=== PATIENT | male | born 1955 | race Caucasian/White ===

== ENCOUNTER 2018-01-18 09:40 | Emergency (ER) | payer OTHER, MEDICAID ==
[~2018-01-18] VITALS: Ht 198.1 cm; Wt 132.0 kg
[~2018-01-18 09:40] MED LIST: ACET-2619 PO; ACET-4192 PO; ASPI81CT95 PO; DOCU-299 PO; DULO60EC PO; ELA25 PO; FURO-572 PO; GABA300C1 PO; GEMF600T6 PO; ISOS10TA9 PO; METF1000 PO; METO25TA PO; POTA10TE31 PO; SIMV40TA1 PO; SPIR25TA PO; VAS10 PO; ZINC220C12 PO; [UNRECOGNIZED DRUG - CODE] SUBQ
[2018-01-18 10:13] VITALS: BP 119/83
--- NOTE | 2018-01-18 11:10 | NUR ---
C/O HYPERGLYCEMIA FASTING TODAY 510 BLOOD SUGAR--TOOK INSULIN 10UNITS AFTER DENIES SYMPTOMATIC. DENIES N/V/D; SKIN IS PINK/WARM/DRY; AAOX4, SITTING IN WHEELCHAIR LUNGS CLEAR BL; HR EVEN AND REGULAR; PT DENIES ANY FEVER, CP, SOB, OR COUGH AT THIS TIME; PATIENT STATES PAIN OF 0/10 AT THIS TIME; VSS; ER MD MADE AWARE OF PT STATUS.
[2018-01-18] MEDS ORDERED: NACL 0.9% 2,000 ML IV SCH (12:34)
[2018-01-18] MEDS ORDERED: INSULIN REGULAR, HUMAN 100 UNIT/ML VIAL SUBQ ONE (12:35)
[2018-01-18 13:27] LABS: BASOPHILS # (AUTO) 0.3 K/uL (0.00-0.22); BASOPHILS % (AUTO) 3.5 % (0.0-2.0); EOSINOPHILS # (AUTO) 0.5 K/uL (0-0.4); EOSINOPHILS % (AUTO) 5.3 % (0.0-4.0); HEMOGLOBIN 14.8 g/dL (12.0-18.0); LYMPHOCYTES # (AUTO) 3.3 K/uL (2.0-11.5); LYMPHOCYTES % (AUTO) 34.1 % (20.5-51.1); MEAN CORPUSCULAR HEMOGLOBIN 29 pg (27-31); MEAN CORPUSCULAR HGB CONC 33 g/dL (33-37); MEAN CORPUSCULAR VOLUME 88 fL (80-94); MONOCYTES # (AUTO) 0.6 K/uL (0.8-1.0); MONOCYTES % (AUTO) 5.9 % (1.7-9.3); NEUTROPHILS # (AUTO) 4.9 K/uL (1.8-7.7); NEUTROPHILS % (AUTO) 51.2 % (42.2-75.2); PLATELET COUNT (AUTO) 365 K/uL (140-450); RED BLOOD CELL COUNT(AUTO) 5.11 MIL/uL (4.20-6.10); RED CELL DISTRIBUTION WIDTH 13.2 % (11.6-13.7); WHITE BLOOD COUNT (AUTO) 9.6 K/uL (4.8-10.8)
[2018-01-18 13:48] LABS: APPEARANCE,URINE CLEAR (CLEAR); BILIRUBIN,URINE NEGATIVE (NEGATIVE); BLOOD, URINE NEGATIVE (NEGATIVE); COLOR,URINE YELLOW (YELLOW); LEUKOCYTE ESTERASE ,URINE NEGATIVE (NEGATIVE); NITRITE, URINE NEGATIVE (NEGATIVE); PH,URINE 5.5 (5.0-9.0); UGLUCOSE 3+ (NEGATIVE)
[2018-01-18 13:50] LABS: ALBUMIN 3.7 g/dL (3.4-5.0); ANION GAP 15.8 (8-16); CARBON DIOXIDE 25.7 mmol/L (21-32); CREATININE 1.5 mg/dL (0.7-1.3); POTASSIUM 4.5 mmol/L (3.5-5.1); TOTAL BILIRUBIN 0.4 mg/dL (0.0-1.0)
--- NOTE | 2018-01-18 14:00 | NUR ---
PT SITTING IN WHEELCHAIR, NO C/O PAIN OR DISCOMFORT AT THIS TIME.
--- NOTE | 2018-01-18 15:06 | NUR ---
RECHECKED FINGER BS 307, MD AWARE.
--- NOTE | 2018-01-18 15:30 | NUR ---
Patient discharged with v/s stable. Written and verbal after care instructions given and explained. Patient verbalized understanding. Wheel Chair Assisted with to home. All questions addressed prior to discharge. Advised to follow up with PMD.
[2018-01-18 15:32] VITALS: BP 120/80
== END 2018-01-18 15:30 | disposition home or self-care (01) ==
LOC: MED 09:40
DX: E11.65 Type 2 diabetes mellitus with hyperglycemia (principal); J44.9 Chronic obstructive pulmonary disease, unspecified; I10 Essential (primary) hypertension; Z79.84 Long term (current) use of oral hypoglycemic drugs; Z79.899 Other long term (current) drug therapy; Z79.82 Long term (current) use of aspirin
CPT/HCPCS: 36415; 80053; 81003; 82948; 83690; 85025; 96360; 96361; 99285; J1815

== ENCOUNTER 2018-03-30 11:33 | Emergency (ER) | payer OTHER, MEDICAID ==
[~2018-03-30] VITALS: Ht 198.1 cm; Wt 132.9 kg
[2018-03-30 11:37] VITALS: BP 150/66
[2018-03-30 12:56] VITALS: BP 150/66
== END 2018-03-30 12:02 | disposition home or self-care (01) ==
LOC: MED 11:33
DX: S13.4XXA Sprain of ligaments of cervical spine, initial encounter (principal); S50.312A Abrasion of left elbow, initial encounter; S50.311A Abrasion of right elbow, initial encounter; M25.551 Pain in right hip; R51 Headache; J44.9 Chronic obstructive pulmonary disease, unspecified; E11.9 Type 2 diabetes mellitus without complications; I10 Essential (primary) hypertension; V23.4XXA Motorcycle driver injured in collision with car, pick-up truck or van in traffic accident, initial encounter; Y93.89 Activity, other specified; Y99.8 Other external cause status; Y92.488 Other paved roadways as the place of occurrence of the external cause
CPT/HCPCS: 70450; 72125; 73502; 99284

== ENCOUNTER 2018-04-13 09:01 | Inpatient (IN) | payer OTHER, MEDICAID ==
[~2018-04-13] VITALS: Ht 198.1 cm; Wt 137.9 kg
[2018-04-13 09:06] VITALS: BP 139/76
[2018-04-13] MEDS ORDERED: ASPIRIN 81 MG TAB.CHEW PO ONE (09:35)
[2018-04-13 09:56] LABS: BASOPHILS # (AUTO) 0.1 K/uL (0.00-0.22); BASOPHILS % (AUTO) 0.6 % (0.0-2.0); EOSINOPHILS # (AUTO) 0.1 K/uL (0-0.4); HEMATOCRIT 37.7 % (36-52); HEMOGLOBIN 12.3 g/dL (12.0-18.0); LYMPHOCYTES # (AUTO) 1.8 K/uL (2.0-11.5); LYMPHOCYTES % (AUTO) 12.6 % (20.5-51.1); MEAN CORPUSCULAR HEMOGLOBIN 29 pg (27-31); MEAN CORPUSCULAR HGB CONC 33 g/dL (33-37); MEAN CORPUSCULAR VOLUME 89.3 fL (80-94); NEUTROPHILS # (AUTO) 10.9 K/uL (1.8-7.7); NEUTROPHILS % (AUTO) 78.8 % (42.2-75.2); PLATELET COUNT (AUTO) 397 K/uL (140-450); RED BLOOD CELL COUNT(AUTO) 4.23 MIL/uL (4.20-6.10); RED CELL DISTRIBUTION WIDTH 14.2 % (11.6-13.7); WHITE BLOOD COUNT (AUTO) 13.9 K/uL (4.8-10.8)
[2018-04-13] MEDS ORDERED: NITROGLYCERIN 2% 1 GM PKT TP ONE (10:05)
[2018-04-13 10:07] LABS: ANION GAP 15.6 (8-16); CARBON DIOXIDE 22.8 mmol/L (21-32); CREATININE 1.6 mg/dL (0.7-1.3); POTASSIUM 5.4 mmol/L (3.5-5.1)
[2018-04-13 10:14] LABS: ALBUMIN 3.3 g/dL (3.4-5.0); TOTAL BILIRUBIN 0.5 mg/dL (0.0-1.0)
[2018-04-13] MEDS ORDERED: SODIUM POLYSTYRENE 15 GM/60 ML UDBTL PO ONE ×2 (10:40→14:20)
[2018-04-13] MEDS ORDERED: SODIUM BICARBONATE 8.4% PFS 50 MEQ/50 ML SYR IVP ONE (10:40)
[2018-04-13] MEDS ORDERED: INSULIN REGULAR, HUMAN 100 UNIT/ML VIAL SUBQ ONE (10:40)
[2018-04-13] MEDS ORDERED: NACL 0.9% 1,000 ML IV ONE (10:40)
[2018-04-13] MEDS ORDERED: DOCUSATE SODIUM 100 MG GELCAP PO PRN (11:45)
[2018-04-13] MEDS ORDERED: HYDROcodone/APAP 7.5/325 MG 1 TAB PO PRN (11:45)
[2018-04-13] MEDS ORDERED: MORPHINE SULFATE 2 MG/ML SYR IVP PRN ×2 (11:45→13:30)
[2018-04-13 12:30] VITALS: BP 135/75
[2018-04-13 12:51] LABS: CHOL/HDL RATIO 3.5 (1-4.5); FREE T4 (FREE THYROXINE) 1.06 ng/dL (0.76-1.46); MAGNESIUM 1.7 mg/dL (1.8-2.4); PHOSPHORUS 3.8 mg/dL (2.5-4.9); THYROID STIMULATING HORMONE 1.24 uIU/mL (0.34-3.74)
[2018-04-13] MEDS: NACL 0.9% 1,000 ML IV SCH ×2 (13:15→19:41)
[2018-04-13] MEDS ORDERED: NITROGLYCERIN 0.4 MG TAB SL PRN (13:30)
[2018-04-13] MEDS ORDERED: DEXTROSE 50% 50 ML SYR IVP PRN (14:20)
[2018-04-13 15:16] LABS: ANION GAP 11.8 (8-16); CARBON DIOXIDE 26.1 mmol/L (21-32); CREATININE 1.5 mg/dL (0.7-1.3); POTASSIUM 4.9 mmol/L (3.5-5.1)
[2018-04-13 16:00] VITALS: BP 105/69
[2018-04-13] MEDS ORDERED: MAG SULF 2000 MG/WATER PREMIX 50 ML IV SCH (16:00)
[2018-04-13] MEDS: BLOOD GLUCOSE MONITORING 1 DEV DEV FS SCH ×2 (16:45→20:52)
[2018-04-13] MEDS: INSULIN LISPRO SLIDING SCALE 100 UNITS/ML VIAL SUBQ PRN ×2 (17:10→20:55)
[2018-04-13] MEDS ORDERED: LISI10TA11 PO (17:27)
[2018-04-13] MEDS ORDERED: GABA300C1 PO (17:27)
[2018-04-13] MEDS ORDERED: [UNRECOGNIZED DRUG - CODE] SUBQ (17:27)
[2018-04-13] MEDS ORDERED: INSU100S22 SUBQ (17:27)
[2018-04-13] MEDS ORDERED: FURO-570 PO (17:27)
[2018-04-13] MEDS ORDERED: METO100T14 PO (17:27)
[2018-04-13] MEDS ORDERED: ATOR20TA PO (17:27)
[2018-04-13] MEDS ORDERED: HUM SUBQ (17:27)
[2018-04-13] MEDS ORDERED: GEMF600T6 PO (17:27)
[2018-04-13 18:33] LABS: APPEARANCE,URINE CLEAR (CLEAR); BILIRUBIN,URINE NEGATIVE (NEGATIVE); BLOOD, URINE NEGATIVE (NEGATIVE); COLOR,URINE YELLOW (YELLOW); LEUKOCYTE ESTERASE ,URINE NEGATIVE (NEGATIVE); NITRITE, URINE NEGATIVE (NEGATIVE); PH,URINE 5.5 (5.0-9.0); UGLUCOSE 3+ (NEGATIVE)
[2018-04-13 18:41] LABS: BARBITURATE, URINE NEG. ng/ml (NEG <=200); BENZODIAZEPINE, URINE NEG. ng/mL (NEG <=200); CANNABINOID, URINE NEG. ng/mL (NEG <=50); COCAINE, URINE NEG. ng/mL (NEG <=300); OPIATE, URINE NEG. ng/mL (NEG <=2000); PHENCYCLIDINE SCREEN,URINE NEG. ng/mL (NEG <=25)
[2018-04-13 20:00] VITALS: BP 110/68
[2018-04-13] MEDS ORDERED: ATORVASTATIN 20 MG TAB PO SCH ×2 (21:00)
[2018-04-14] MEDS: ACETAMINOPHEN 325 MG TAB PO PRN ×2 (00:33→16:07)
[2018-04-14 00:36] VITALS: BP 119/62
[2018-04-14] MEDS: NACL 0.9% 1,000 ML IV SCH ×3 (02:10→19:41)
[2018-04-14 04:00] VITALS: BP 132/70
[2018-04-14] MEDS: INSULIN LISPRO SLIDING SCALE 100 UNITS/ML VIAL SUBQ PRN ×4 (05:27→20:41)
[2018-04-14] MEDS: BLOOD GLUCOSE MONITORING 1 DEV DEV FS SCH ×4 (05:27→20:36)
[2018-04-14 06:16] LABS: T4 (THYROXINE) 7.7 ug/dL (4.5-12.0)
[2018-04-14 06:30] LABS: BASOPHILS # (AUTO) 0.1 K/uL (0.00-0.22); BASOPHILS % (AUTO) 0.5 % (0.0-2.0); EOSINOPHILS # (AUTO) 0.2 K/uL (0-0.4); EOSINOPHILS % (AUTO) 1.4 % (0.0-4.0); HEMATOCRIT 34.8 % (36-52); HEMOGLOBIN 11.2 g/dL (12.0-18.0); LYMPHOCYTES # (AUTO) 3.8 K/uL (2.0-11.5); LYMPHOCYTES % (AUTO) 30.2 % (20.5-51.1); MEAN CORPUSCULAR HEMOGLOBIN 29 pg (27-31); MEAN CORPUSCULAR HGB CONC 32 g/dL (33-37); MEAN CORPUSCULAR VOLUME 89.8 fL (80-94); MONOCYTES # (AUTO) 1.1 K/uL (0.8-1.0); MONOCYTES % (AUTO) 8.7 % (1.7-9.3); NEUTROPHILS # (AUTO) 7.5 K/uL (1.8-7.7); NEUTROPHILS % (AUTO) 59.2 % (42.2-75.2); PLATELET COUNT (AUTO) 350 K/uL (140-450); RED BLOOD CELL COUNT(AUTO) 3.88 MIL/uL (4.20-6.10); RED CELL DISTRIBUTION WIDTH 14.3 % (11.6-13.7); WHITE BLOOD COUNT (AUTO) 12.6 K/uL (4.8-10.8)
[2018-04-14 06:39] LABS: ANION GAP 12.1 (8-16); CREATININE 1.5 mg/dL (0.7-1.3); POTASSIUM 4.1 mmol/L (3.5-5.1)
[2018-04-14 06:51] LABS: MAGNESIUM 2.3 mg/dL (1.8-2.4); PHOSPHORUS 3.4 mg/dL (2.5-4.9)
[2018-04-14 08:00] VITALS: BP 149/96
[2018-04-14] MEDS: AMITRIPTYLINE 25 MG TAB PO SCH (08:13)
[2018-04-14] MEDS: METOPROLOL SUCCINATE 50 MG TABER PO SCH (08:13)
[2018-04-14] MEDS: GABAPENTIN 300 MG CAP PO SCH ×3 (08:13→16:06)
[2018-04-14] MEDS: SPIRONOLACTONE 25 MG TAB PO SCH (08:14)
[2018-04-14] MEDS: FUROSEMIDE 40 MG TAB PO SCH (08:15)
[2018-04-14] MEDS: DULoxetine 30 MG CAPDR PO SCH (08:15)
[2018-04-14] MEDS: ATORVASTATIN 20 MG TAB PO SCH (08:15)
[2018-04-14] MEDS: GEMFIBROZIL 600 MG TAB PO SCH (08:15)
[2018-04-14] MEDS: ISOSORBIDE DINITRATE 10 MG TAB PO SCH (08:15)
[2018-04-14] MEDS: ASPIRIN 81 MG TAB.CHEW PO SCH (08:15)
[2018-04-14] MEDS: LISINOPRIL 10 MG TAB PO SCH (08:16)
[2018-04-14] MEDS: INSULIN LANTUS 100 UNITS/ML 10 ML VIAL SUBQ SCH (08:24)
[2018-04-14] MEDS ORDERED: ASPIRIN 81 MG TAB.CHEW PO SCH (09:00)
[2018-04-14] MEDS ORDERED: LISINOPRIL 20 MG TAB PO SCH (09:00)
[2018-04-14] MEDS ORDERED: METOPROLOL SUCCINATE 50 MG TABER PO SCH (09:00)
[2018-04-14 12:00] VITALS: BP 133/71
[2018-04-14] MEDS ORDERED: guaiFENesin 20 MG/ML UDC PO PRN (14:35)
[2018-04-14 16:00] VITALS: BP 124/84
[2018-04-14 20:00] VITALS: BP 112/68
[2018-04-15] VITALS: BP 118/64
[2018-04-15] MEDS: NACL 0.9% 1,000 ML IV SCH ×2 (03:41→13:13)
[2018-04-15 04:00] VITALS: BP 137/78
[2018-04-15] MEDS: BLOOD GLUCOSE MONITORING 1 DEV DEV FS SCH ×4 (05:56→20:31)
[2018-04-15 06:30] LABS: BASOPHILS # (AUTO) 0.1 K/uL (0.00-0.22); BASOPHILS % (AUTO) 0.4 % (0.0-2.0); EOSINOPHILS # (AUTO) 0.2 K/uL (0-0.4); EOSINOPHILS % (AUTO) 1.2 % (0.0-4.0); HEMOGLOBIN 10.9 g/dL (12.0-18.0); LYMPHOCYTES % (AUTO) 29.8 % (20.5-51.1); MEAN CORPUSCULAR HEMOGLOBIN 29 pg (27-31); MEAN CORPUSCULAR HGB CONC 32 g/dL (33-37); MEAN CORPUSCULAR VOLUME 89.7 fL (80-94); MONOCYTES # (AUTO) 1.3 K/uL (0.8-1.0); MONOCYTES % (AUTO) 9.7 % (1.7-9.3); NEUTROPHILS # (AUTO) 7.9 K/uL (1.8-7.7); NEUTROPHILS % (AUTO) 58.9 % (42.2-75.2); PLATELET COUNT (AUTO) 326 K/uL (140-450); RED BLOOD CELL COUNT(AUTO) 3.79 MIL/uL (4.20-6.10); RED CELL DISTRIBUTION WIDTH 14.2 % (11.6-13.7); WHITE BLOOD COUNT (AUTO) 13.4 K/uL (4.8-10.8)
[2018-04-15 08:00] VITALS: BP 141/87
[2018-04-15 08:09] LABS: POTASSIUM 4.4 mmol/L (3.5-5.1)
[2018-04-15 08:10] LABS: ANION GAP 11.6 (8-16); CARBON DIOXIDE 24.8 mmol/L (21-32); CREATININE 1.6 mg/dL (0.7-1.3)
[2018-04-15] MEDS: GEMFIBROZIL 600 MG TAB PO SCH (08:42)
[2018-04-15] MEDS: GABAPENTIN 300 MG CAP PO SCH ×3 (08:42→16:27)
[2018-04-15] MEDS: DULoxetine 30 MG CAPDR PO SCH (08:42)
[2018-04-15] MEDS: AMITRIPTYLINE 25 MG TAB PO SCH (08:43)
[2018-04-15] MEDS: LISINOPRIL 10 MG TAB PO SCH (08:43)
[2018-04-15] MEDS: ATORVASTATIN 20 MG TAB PO SCH (08:43)
[2018-04-15] MEDS: SPIRONOLACTONE 25 MG TAB PO SCH (08:44)
[2018-04-15] MEDS: FUROSEMIDE 40 MG TAB PO SCH (08:44)
[2018-04-15] MEDS: METOPROLOL SUCCINATE 50 MG TABER PO SCH (08:44)
[2018-04-15] MEDS: ISOSORBIDE DINITRATE 10 MG TAB PO SCH (08:45)
[2018-04-15] MEDS: ASPIRIN 81 MG TAB.CHEW PO SCH (08:45)
[2018-04-15] MEDS: INSULIN LANTUS 100 UNITS/ML 10 ML VIAL SUBQ SCH (08:52)
[2018-04-15 12:00] VITALS: BP 121/83
[2018-04-15] MEDS: INSULIN LISPRO SLIDING SCALE 100 UNITS/ML VIAL SUBQ PRN ×2 (12:41→17:13)
[2018-04-15 16:00] VITALS: BP 122/74
[2018-04-15] MEDS: INSULIN NPH HUMAN ISOPHANE 100 UNIT/ML VIAL SUBQ SCH (17:14)
[2018-04-15 20:00] VITALS: BP 134/73
[2018-04-15 22:20] LABS: APPEARANCE,URINE CLEAR (CLEAR); BILIRUBIN,URINE NEGATIVE (NEGATIVE); BLOOD, URINE NEGATIVE (NEGATIVE); COLOR,URINE YELLOW (YELLOW); LEUKOCYTE ESTERASE ,URINE NEGATIVE (NEGATIVE); NITRITE, URINE NEGATIVE (NEGATIVE); PH,URINE 5.5 (5.0-9.0); UGLUCOSE TRACE (NEGATIVE)
[2018-04-15 22:37] LABS: RBC,URINE 0-5 (RARE) /HPF (0-5); WBC,URINE 0-5 (RARE) /HPF (0-5)
[2018-04-15 22:39] LABS: HYALINE CASTS, URINE 0-10 /LPF (None Seen)
[2018-04-16] VITALS: BP 135/73
[2018-04-16] MEDS: NACL 0.9% 1,000 ML IV SCH ×3 (00:25→22:34)
[2018-04-16 04:00] VITALS: BP 138/82
[2018-04-16] MEDS: BLOOD GLUCOSE MONITORING 1 DEV DEV FS SCH ×4 (06:42→20:47)
[2018-04-16] MEDS: INSULIN NPH HUMAN ISOPHANE 100 UNIT/ML VIAL SUBQ SCH ×2 (06:44→16:30)
[2018-04-16 07:47] LABS: CARBON DIOXIDE 24.6 mmol/L (21-32); CREATININE 1.4 mg/dL (0.7-1.3); POTASSIUM 4.6 mmol/L (3.5-5.1)
[2018-04-16 07:48] LABS: BASOPHILS # (AUTO) 0.1 K/uL (0.00-0.22); BASOPHILS % (AUTO) 0.7 % (0.0-2.0); EOSINOPHILS # (AUTO) 0.2 K/uL (0-0.4); EOSINOPHILS % (AUTO) 1.7 % (0.0-4.0); HEMATOCRIT 31.5 % (36-52); HEMOGLOBIN 10.2 g/dL (12.0-18.0); LYMPHOCYTES # (AUTO) 3.3 K/uL (2.0-11.5); MEAN CORPUSCULAR HEMOGLOBIN 29 pg (27-31); MEAN CORPUSCULAR HGB CONC 33 g/dL (33-37); MEAN CORPUSCULAR VOLUME 89.2 fL (80-94); MONOCYTES # (AUTO) 0.9 K/uL (0.8-1.0); MONOCYTES % (AUTO) 7.9 % (1.7-9.3); NEUTROPHILS # (AUTO) 6.6 K/uL (1.8-7.7); NEUTROPHILS % (AUTO) 59.7 % (42.2-75.2); PLATELET COUNT (AUTO) 335 K/uL (140-450); RED BLOOD CELL COUNT(AUTO) 3.53 MIL/uL (4.20-6.10); RED CELL DISTRIBUTION WIDTH 14.4 % (11.6-13.7); WHITE BLOOD COUNT (AUTO) 11.1 K/uL (4.8-10.8)
[2018-04-16 08:00] VITALS: BP 129/89
[2018-04-16 08:02] LABS: MAGNESIUM 2.2 mg/dL (1.8-2.4)
[2018-04-16] MEDS: SPIRONOLACTONE 25 MG TAB PO SCH (08:12)
[2018-04-16] MEDS: ATORVASTATIN 20 MG TAB PO SCH (08:12)
[2018-04-16] MEDS: ASPIRIN 81 MG TAB.CHEW PO SCH (08:12)
[2018-04-16] MEDS: LISINOPRIL 10 MG TAB PO SCH ×2 (08:13→09:00)
[2018-04-16] MEDS: AMITRIPTYLINE 25 MG TAB PO SCH (08:13)
[2018-04-16] MEDS: IBUPROFEN 600 MG TAB PO SCH ×2 (08:13→16:58)
[2018-04-16] MEDS: METOPROLOL SUCCINATE 50 MG TABER PO SCH (08:13)
[2018-04-16] MEDS: GABAPENTIN 300 MG CAP PO SCH ×3 (08:13→17:00)
[2018-04-16] MEDS: ISOSORBIDE DINITRATE 10 MG TAB PO SCH (08:13)
[2018-04-16] MEDS: DULoxetine 30 MG CAPDR PO SCH (08:14)
[2018-04-16] MEDS: GEMFIBROZIL 600 MG TAB PO SCH (08:14)
[2018-04-16] MEDS: INSULIN LANTUS 100 UNITS/ML 10 ML VIAL SUBQ SCH (08:27)
[2018-04-16 12:00] VITALS: BP 108/62
[2018-04-16 16:00] VITALS: BP 91/64
[2018-04-16 20:00] VITALS: BP 92/65
[2018-04-17] VITALS: BP 112/67
[2018-04-17 04:00] VITALS: BP 122/80
[2018-04-17] MEDS: BLOOD GLUCOSE MONITORING 1 DEV DEV FS SCH ×2 (06:20→11:30)
[2018-04-17] MEDS: INSULIN NPH HUMAN ISOPHANE 100 UNIT/ML VIAL SUBQ SCH (06:55)
[2018-04-17 07:27] LABS: BASOPHILS # (AUTO) 0.1 K/uL (0.00-0.22); BASOPHILS % (AUTO) 0.8 % (0.0-2.0); EOSINOPHILS # (AUTO) 0.3 K/uL (0-0.4); EOSINOPHILS % (AUTO) 2.8 % (0.0-4.0); HEMATOCRIT 32.9 % (36-52); HEMOGLOBIN 10.9 g/dL (12.0-18.0); LYMPHOCYTES # (AUTO) 2.9 K/uL (2.0-11.5); LYMPHOCYTES % (AUTO) 29.3 % (20.5-51.1); MEAN CORPUSCULAR HEMOGLOBIN 30 pg (27-31); MEAN CORPUSCULAR HGB CONC 33 g/dL (33-37); MONOCYTES # (AUTO) 0.6 K/uL (0.8-1.0); MONOCYTES % (AUTO) 6.2 % (1.7-9.3); NEUTROPHILS % (AUTO) 60.9 % (42.2-75.2); PLATELET COUNT (AUTO) 416 K/uL (140-450); RED BLOOD CELL COUNT(AUTO) 3.66 MIL/uL (4.20-6.10); WHITE BLOOD COUNT (AUTO) 9.9 K/uL (4.8-10.8)
[2018-04-17 07:28] LABS: MAGNESIUM 2.2 mg/dL (1.8-2.4); PHOSPHORUS 5.1 mg/dL (2.5-4.9)
[2018-04-17 07:34] LABS: ANION GAP 13.8 (8-16); CARBON DIOXIDE 23.8 mmol/L (21-32); CREATININE 1.6 mg/dL (0.7-1.3); POTASSIUM 4.6 mmol/L (3.5-5.1)
[2018-04-17 08:00] VITALS: BP 135/77
[2018-04-17] MEDS: IBUPROFEN 600 MG TAB PO SCH (08:27)
[2018-04-17] MEDS: ATORVASTATIN 20 MG TAB PO SCH (08:27)
[2018-04-17] MEDS: DULoxetine 30 MG CAPDR PO SCH (08:27)
[2018-04-17] MEDS: GABAPENTIN 300 MG CAP PO SCH ×2 (08:28→13:46)
[2018-04-17] MEDS: SPIRONOLACTONE 25 MG TAB PO SCH (08:28)
[2018-04-17] MEDS: AMITRIPTYLINE 25 MG TAB PO SCH (08:28)
[2018-04-17] MEDS: LISINOPRIL 10 MG TAB PO SCH (08:28)
[2018-04-17] MEDS: ASPIRIN 81 MG TAB.CHEW PO SCH (08:28)
[2018-04-17] MEDS: GEMFIBROZIL 600 MG TAB PO SCH (08:29)
[2018-04-17] MEDS: ISOSORBIDE DINITRATE 10 MG TAB PO SCH (08:29)
[2018-04-17] MEDS: METOPROLOL SUCCINATE 50 MG TABER PO SCH (08:38)
[2018-04-17] MEDS: INSULIN LANTUS 100 UNITS/ML 10 ML VIAL SUBQ SCH (08:42)
[2018-04-17] MEDS ORDERED: GABA-638 PO (09:07)
[2018-04-17] MEDS: NACL 0.9% 1,000 ML IV SCH (09:41)
[2018-04-17] MEDS ORDERED: LANTUS SUBQ (09:41)
[2018-04-17] MEDS ORDERED: INSU100S10 SUBQ (09:41)
[2018-04-17] MEDS ORDERED: OMEP20TC12 PO (10:01)
[2018-04-17 12:00] VITALS: BP 145/72
[2018-04-17] MEDS ORDERED: RIVA20TA PO (12:26)
[2018-04-17] MEDS ORDERED: NACL 0.9% 500 ML IV SCH (12:39)
[2018-04-17] MEDS ORDERED: RIVAROXABAN 10 MG TAB PO SCH (12:40)
== END 2018-04-17 15:10 | disposition home or self-care (01) | DRG 308 ==
LOC: MED 09:01 → MTU 11:41
PROVIDERS: ADMIT General Practice; ATTEND General Practice
DX: I48.91 Unspecified atrial fibrillation (principal); I50.43 Acute on chronic combined systolic (congestive) and diastolic (congestive) heart failure; N17.0 Acute kidney failure with tubular necrosis; E44.0 Moderate protein-calorie malnutrition; D68.59 Other primary thrombophilia; E11.21 Type 2 diabetes mellitus with diabetic nephropathy; E11.40 Type 2 diabetes mellitus with diabetic neuropathy, unspecified; E11.51 Type 2 diabetes mellitus with diabetic peripheral angiopathy without gangrene; E87.1 Hypo-osmolality and hyponatremia; M86.672 Other chronic osteomyelitis, left ankle and foot; I24.9 Acute ischemic heart disease, unspecified; E11.65 Type 2 diabetes mellitus with hyperglycemia; E11.69 Type 2 diabetes mellitus with other specified complication; E83.42 Hypomagnesemia; E87.5 Hyperkalemia; J44.9 Chronic obstructive pulmonary disease, unspecified; E78.5 Hyperlipidemia, unspecified; E66.9 Obesity, unspecified; F32.9 Major depressive disorder, single episode, unspecified; F41.9 Anxiety disorder, unspecified; I70.209 Unspecified atherosclerosis of native arteries of extremities, unspecified extremity; I11.0 Hypertensive heart disease with heart failure; Z87.891 Personal history of nicotine dependence; Z79.84 Long term (current) use of oral hypoglycemic drugs; Z79.4 Long term (current) use of insulin; Z79.01 Long term (current) use of anticoagulants; Z68.35 Body mass index [BMI] 35.0-35.9, adult; Z89.422 Acquired absence of other left toe(s); Z99.3 Dependence on wheelchair; I25.10 Atherosclerotic heart disease of native coronary artery without angina pectoris
CPT/HCPCS: 36415; 36600; 71045; 73630; 80048; 80053; 80305; 81001; 81003; 82150; 82803; 82948; 83036; 83690; 83735; 83880; 84100; 84436; 84439; 84443; 84479; 84484; 85025; 85379; 85610; 85730; 87081; 87086; 93005; 93925; 93970; 96361; 96374; 97110; 97140; 99291; J0696; J1644; J1815; J3475; J7030; J7060; Q0092

== ENCOUNTER 2018-05-27 13:15 | Inpatient (IN) | payer OTHER, MEDICAID ==
[~2018-05-27] VITALS: Ht 198.1 cm; Wt 128.8 kg
[~2018-05-27 13:15] MED LIST changes: -ACET-2619 PO; -ACET-4192 PO; +ATOR20TA PO; -DOCU-299 PO; +FURO-570 PO; -FURO-572 PO; +GABA-638 PO; -GABA300C1 PO; +LANTUS SUBQ; +LISI10TA11 PO; -METF1000 PO; +METO100T14 PO; -METO25TA PO; +OMEP20TC12 PO; -POTA10TE31 PO; +RIVA20TA PO; -SIMV40TA1 PO; -VAS10 PO; -ZINC220C12 PO; -[UNRECOGNIZED DRUG - CODE] SUBQ
[2018-05-27 13:20] VITALS: BP 92/51
[2018-05-27] MEDS ORDERED: NACL 0.9% 1,000 ML IV ONE (13:50)
[2018-05-27 14:24] LABS: BASOPHILS # (AUTO) 0.1 K/uL (0.00-0.22); BASOPHILS % (AUTO) 0.7 % (0.0-2.0); EOSINOPHILS # (AUTO) 0.2 K/uL (0-0.4); EOSINOPHILS % (AUTO) 1.4 % (0.0-4.0); HEMATOCRIT 37.8 % (36-52); LYMPHOCYTES # (AUTO) 4.1 K/uL (2.0-11.5); LYMPHOCYTES % (AUTO) 33.8 % (20.5-51.1); MEAN CORPUSCULAR HEMOGLOBIN 26 pg (27-31); MEAN CORPUSCULAR HGB CONC 32 g/dL (33-37); MEAN CORPUSCULAR VOLUME 82.5 fL (80-94); MONOCYTES # (AUTO) 0.7 K/uL (0.8-1.0); MONOCYTES % (AUTO) 6.1 % (1.7-9.3); PLATELET COUNT (AUTO) 750 K/uL (140-450); RED BLOOD CELL COUNT(AUTO) 4.58 MIL/uL (4.20-6.10); RED CELL DISTRIBUTION WIDTH 17.1 % (11.6-13.7); WHITE BLOOD COUNT (AUTO) 12.1 K/uL (4.8-10.8)
[2018-05-27 14:41] LABS: PROTHROMBIN TIME 11.1 secs (10.8-13.4)
[2018-05-27] MEDS ORDERED: AMIODARONE 450 MG in DEXTROSE 5% 250 ML IV ONE (14:45)
[2018-05-27] MEDS ORDERED: AMIODARONE 150 MG in DEXTROSE 5% 100 ML IV ONE (14:45)
[2018-05-27 14:51] LABS: ALBUMIN 2.8 g/dL (3.4-5.0); ANION GAP 14.3 (8-16); CARBON DIOXIDE 27.5 mmol/L (21-32); POTASSIUM 4.8 mmol/L (3.5-5.1); TOTAL BILIRUBIN 0.4 mg/dL (0.0-1.0)
[2018-05-27] MEDS ORDERED: AMIODARONE 150 MG/3 ML VIAL IV ONE (14:52)
[2018-05-27] MEDS ORDERED: AMIODARONE 450 MG/9 ML VIAL IV ONE (14:53)
[2018-05-27] MEDS ORDERED: ONDANSETRON 4 MG/2 ML VIAL ONE (15:57)
[2018-05-27] MEDS ORDERED: ZOLPIDEM 5 MG TAB PO PRN (16:15)
[2018-05-27] MEDS ORDERED: MORPHINE SULFATE 2 MG/ML SYR IVP PRN (16:15)
[2018-05-27] MEDS ORDERED: HYDROcodone/APAP 5/325 MG 1 TAB TAB PO PRN (16:15)
[2018-05-27] MEDS ORDERED: ONDANSETRON 4 MG/2 ML VIAL IM/IVP PRN (16:15)
[2018-05-27] MEDS ORDERED: LORazepam 2 MG/ML VIAL IM/IVP PRN (16:15)
[2018-05-27] MEDS ORDERED: ACETAMINOPHEN 325 MG TAB PO PRN (16:15)
[2018-05-27] MEDS ORDERED: DOCUSATE SODIUM 100 MG GELCAP PO PRN (16:15)
[2018-05-27] MEDS ORDERED: ONDANSETRON 4 MG/2 ML VIAL IVP ONE (16:40)
[2018-05-27 17:40] VITALS: BP 104/67
[2018-05-27] MEDS ORDERED: GABAPENTIN 300 MG CAP PO SCH (17:44)
[2018-05-27] MEDS ORDERED: NITROGLYCERIN 0.4 MG TAB SL PRN (17:45)
[2018-05-27 17:48] LABS: CHOL/HDL RATIO 3.8 (1-4.5); FREE T4 (FREE THYROXINE) 1.19 ng/dL (0.76-1.46); MAGNESIUM 1.2 mg/dL (1.8-2.4); PHOSPHORUS 4.6 mg/dL (2.5-4.9); THYROID STIMULATING HORMONE 1.94 uIU/mL (0.34-3.74)
[2018-05-27] MEDS ORDERED: METF1000 PO (18:06)
[2018-05-27] MEDS ORDERED: DEXTROSE 50% 50 ML SYR IVP PRN (18:10)
[2018-05-27] MEDS ORDERED: GEMF600T6 PO (18:12)
[2018-05-27] MEDS ORDERED: MAG SULF 2000 MG/WATER PREMIX 50 ML IV ONE (18:20)
[2018-05-27] MEDS ORDERED: METOPROLOL 50 MG TAB PO SCH (18:30)
[2018-05-27] MEDS: NACL 0.9% 1,000 ML IV SCH (18:49)
[2018-05-27 20:06] VITALS: BP 119/74
[2018-05-27] MEDS: MAGNESIUM SULFATE 1GM in DEXTROSE 5% 100 ML PREMIX IV SCH ×2 (20:11→21:59)
[2018-05-27] MEDS: GEMFIBROZIL 600 MG TAB PO SCH (20:26)
[2018-05-27] MEDS: INSULIN LISPRO SLIDING SCALE 100 UNITS/ML VIAL SUBQ PRN (20:28)
[2018-05-27] MEDS: BLOOD GLUCOSE MONITORING 1 DEV DEV FS SCH (20:58)
[2018-05-28] VITALS: BP 111/60
[2018-05-28 02:46] LABS: APPEARANCE,URINE CLEAR (CLEAR); BILIRUBIN,URINE NEGATIVE (NEGATIVE); BLOOD, URINE NEGATIVE (NEGATIVE); COLOR,URINE YELLOW (YELLOW); LEUKOCYTE ESTERASE ,URINE NEGATIVE (NEGATIVE); NITRITE, URINE NEGATIVE (NEGATIVE); UGLUCOSE TRACE (NEGATIVE)
[2018-05-28 02:55] LABS: BARBITURATE, URINE NEG. ng/ml (NEG <=200); BENZODIAZEPINE, URINE NEG. ng/mL (NEG <=200); CANNABINOID, URINE NEG. ng/mL (NEG <=50); COCAINE, URINE NEG. ng/mL (NEG <=300); OPIATE, URINE NEG. ng/mL (NEG <=2000); PHENCYCLIDINE SCREEN,URINE NEG. ng/mL (NEG <=25)
[2018-05-28 02:56] LABS: RBC,URINE 0-5 (RARE) /HPF (0-5); WBC,URINE 0-5 (RARE) /HPF (0-5)
[2018-05-28] MEDS: NACL 0.9% 1,000 ML IV SCH ×2 (03:48→12:45)
[2018-05-28 04:00] VITALS: BP 111/59
[2018-05-28] MEDS: INSULIN LISPRO SLIDING SCALE 100 UNITS/ML VIAL SUBQ PRN ×2 (05:45→12:50)
[2018-05-28] MEDS: PANTOPRAZOLE 40 MG TABEC PO SCH (05:50)
[2018-05-28] MEDS: BLOOD GLUCOSE MONITORING 1 DEV DEV FS SCH ×4 (06:12→20:48)
[2018-05-28 08:00] VITALS: BP 122/71
[2018-05-28] MEDS: metFORMIN 500 MG TAB PO SCH ×2 (08:57→18:06)
[2018-05-28] MEDS: GEMFIBROZIL 600 MG TAB PO SCH ×2 (08:58→20:50)
[2018-05-28] MEDS: METOPROLOL SUCCINATE 50 MG TABER PO SCH (08:58)
[2018-05-28] MEDS: GABAPENTIN 300 MG CAP PO SCH ×3 (08:58→18:05)
[2018-05-28] MEDS: AMITRIPTYLINE 25 MG TAB PO SCH (08:59)
[2018-05-28] MEDS: FUROSEMIDE 40 MG TAB PO SCH (08:59)
[2018-05-28] MEDS ORDERED: ASPIRIN 81 MG TAB.CHEW PO SCH (09:00)
[2018-05-28] MEDS ORDERED: NON-FORMULARY ITEM (Omeprazole (Omeprazole) 1 TAB) PO SCH (09:00)
[2018-05-28] MEDS ORDERED: NON-FORMULARY ITEM (Aspirin 1 TAB) PO SCH (09:00)
[2018-05-28] MEDS: LISINOPRIL 10 MG TAB PO SCH (09:00)
[2018-05-28] MEDS ORDERED: SPIRONOLACTONE PO SCH (09:00)
[2018-05-28] MEDS: ISOSORBIDE DINITRATE 10 MG TAB PO SCH (09:00)
[2018-05-28] MEDS ORDERED: GEMFIBROZIL 600 MG TAB PO SCH (09:00)
[2018-05-28] MEDS: ATORVASTATIN 20 MG TAB PO SCH (09:01)
[2018-05-28] MEDS: DULoxetine 30 MG CAPDR PO SCH (09:01)
[2018-05-28] MEDS: SPIRONOLACTONE 25 MG TAB PO SCH (09:01)
[2018-05-28] MEDS: RIVAROXABAN 10 MG TAB PO SCH (09:02)
[2018-05-28] MEDS: INSULIN LANTUS 100 UNITS/ML 10 ML VIAL SUBQ SCH (09:03)
[2018-05-28 12:00] VITALS: BP 110/72
[2018-05-28 16:00] VITALS: BP 95/65
[2018-05-28 20:00] VITALS: BP 117/63
[2018-05-29] VITALS: BP 114/51
[2018-05-29] MEDS: NACL 0.9% 1,000 ML IV SCH (02:07)
[2018-05-29 03:59] VITALS: BP 110/51
[2018-05-29] MEDS: PANTOPRAZOLE 40 MG TABEC PO SCH (06:19)
[2018-05-29] MEDS: BLOOD GLUCOSE MONITORING 1 DEV DEV FS SCH ×3 (06:28→17:02)
[2018-05-29 07:46] LABS: BASOPHILS % (AUTO) 0.2 % (0.0-2.0); EOSINOPHILS # (AUTO) 0.2 K/uL (0-0.4); EOSINOPHILS % (AUTO) 2.4 % (0.0-4.0); HEMATOCRIT 38.2 % (36-52); HEMOGLOBIN 12.2 g/dL (12.0-18.0); LYMPHOCYTES # (AUTO) 2.8 K/uL (2.0-11.5); LYMPHOCYTES % (AUTO) 30.4 % (20.5-51.1); MEAN CORPUSCULAR HEMOGLOBIN 27 pg (27-31); MEAN CORPUSCULAR HGB CONC 32 g/dL (33-37); MEAN CORPUSCULAR VOLUME 83.1 fL (80-94); MONOCYTES # (AUTO) 0.5 K/uL (0.8-1.0); MONOCYTES % (AUTO) 5.8 % (1.7-9.3); NEUTROPHILS # (AUTO) 5.7 K/uL (1.8-7.7); NEUTROPHILS % (AUTO) 61.2 % (42.2-75.2); PLATELET COUNT (AUTO) 542 K/uL (140-450); WHITE BLOOD COUNT (AUTO) 9.3 K/uL (4.8-10.8)
[2018-05-29 07:53] LABS: MAGNESIUM 1.6 mg/dL (1.8-2.4); PHOSPHORUS 4.5 mg/dL (2.5-4.9)
[2018-05-29 08:00] VITALS: BP 120/56
[2018-05-29 08:02] LABS: ANION GAP 13.2 (8-16); CARBON DIOXIDE 29.3 mmol/L (21-32); CREATININE 1.4 mg/dL (0.7-1.3); POTASSIUM 4.5 mmol/L (3.5-5.1)
[2018-05-29] MEDS: GABAPENTIN 300 MG CAP PO SCH ×3 (08:22→17:19)
[2018-05-29] MEDS: FUROSEMIDE 40 MG TAB PO SCH (08:23)
[2018-05-29] MEDS: LISINOPRIL 10 MG TAB PO SCH (08:24)
[2018-05-29] MEDS: metFORMIN 500 MG TAB PO SCH ×2 (08:24→17:19)
[2018-05-29] MEDS: ATORVASTATIN 20 MG TAB PO SCH (08:25)
[2018-05-29] MEDS: METOPROLOL SUCCINATE 50 MG TABER PO SCH (08:25)
[2018-05-29] MEDS: DULoxetine 30 MG CAPDR PO SCH (08:25)
[2018-05-29] MEDS: AMITRIPTYLINE 25 MG TAB PO SCH (08:25)
[2018-05-29] MEDS: SPIRONOLACTONE 25 MG TAB PO SCH (08:26)
[2018-05-29] MEDS: GEMFIBROZIL 600 MG TAB PO SCH (08:26)
[2018-05-29] MEDS: ISOSORBIDE DINITRATE 10 MG TAB PO SCH (08:26)
[2018-05-29] MEDS: INSULIN LANTUS 100 UNITS/ML 10 ML VIAL SUBQ SCH (08:32)
[2018-05-29] MEDS: RIVAROXABAN 10 MG TAB PO SCH (08:32)
[2018-05-29 12:00] VITALS: BP 127/73
[2018-05-29] MEDS: INSULIN LISPRO SLIDING SCALE 100 UNITS/ML VIAL SUBQ PRN (13:17)
[2018-05-29] MEDS ORDERED: DILTIAZEM 30 MG TAB PO SCH (13:30)
[2018-05-29 16:00] VITALS: BP 136/87
[2018-05-29] MEDS ORDERED: CAR30 PO (16:11)
[2018-05-29 16:56] VITALS: BP 136/87
[2018-05-30] MEDS ORDERED: DILTIAZEM 30 MG TAB PO SCH (09:00)
== END 2018-05-29 19:00 | disposition home or self-care (01) | DRG 682 ==
LOC: MED 13:15 → MTU 16:18
PROVIDERS: ADMIT Family Medicine; ATTEND Family Medicine
DX: N17.0 Acute kidney failure with tubular necrosis (principal); E43 Unspecified severe protein-calorie malnutrition; I50.43 Acute on chronic combined systolic (congestive) and diastolic (congestive) heart failure; I48.92 Unspecified atrial flutter; I11.0 Hypertensive heart disease with heart failure; E11.65 Type 2 diabetes mellitus with hyperglycemia; E78.5 Hyperlipidemia, unspecified; E83.42 Hypomagnesemia; E66.9 Obesity, unspecified; Z68.32 Body mass index [BMI] 32.0-32.9, adult; E78.00 Pure hypercholesterolemia, unspecified; E11.40 Type 2 diabetes mellitus with diabetic neuropathy, unspecified; F32.9 Major depressive disorder, single episode, unspecified; Z89.432 Acquired absence of left foot; K21.9 Gastro-esophageal reflux disease without esophagitis
CPT/HCPCS: 36415; 71045; 80048; 80053; 80305; 81001; 82150; 82948; 83036; 83690; 83735; 83880; 84100; 84134; 84439; 84443; 84484; 85025; 85610; 85730; 87081; 93005; 93308; 96374; 96375; 99291; J0282; J1815; J2405; J7030; J7060

== ENCOUNTER 2019-05-11 13:56 | Emergency (ER) | payer BC ==
[~2019-05-11] VITALS: Ht 198.1 cm; Wt 172.4 kg
[~2019-05-11 13:56] MED LIST changes: -ASPI81CT95 PO; +CAR30 PO; +METF1000 PO
[2019-05-11 13:57] VITALS: BP 114/50
--- NOTE | 2019-05-11 13:57 | NUR ---
PT BIB W/C. AAO X4 C/O SHORTNESS OF BREATH X3 DAYS, PRODUCTIVE COUGH X 1 WEEK. PT ALSO REPORTS NAUSEA/VOMITING. LAST FOOD TAKEN TODAY. O2 SAT 99% RA. PT DENIES CHEST PAIN, FEVER. CLEAR EQUAL STEFFANIE LUNGS UPON AUSCULTATION. PITTING EDEMA +1 TO BLE. 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 HOB UP. BED SIDE RAILS UP X1. ON LOW BED POSITION, LOCKED. ER TO EVALUATE PT.
--- NOTE | 2019-05-11 13:57 | NUR ---
Patient transferred to bed 4 via wheelchair by tech. RN evaluating patient at bedside.
[2019-05-11] MEDS ORDERED: AZIT250T3 PO (14:14)
[2019-05-11] MEDS ORDERED: ASPI-1718 PO (14:14)
[2019-05-11] MEDS ORDERED: CAR30 PO (14:14)
[2019-05-11] MEDS ORDERED: GABA300C PO (14:14)
[2019-05-11] MEDS ORDERED: FUROSEMIDE 100 MG/10 ML VIAL IVP ONE (14:15)
--- NOTE | 2019-05-11 14:17 | NUR ---
XRAY AT BEDSIDE FOR INTERVENTION.
[2019-05-11] MEDS ORDERED: INSULIN REGULAR, HUMAN 100 UNIT/ML VIAL SUBQ ONE (15:00)
[2019-05-11 15:02] LABS: BASOPHILS # (AUTO) 0.1 K/uL (0.00-0.22); BASOPHILS % (AUTO) 0.7 % (0.0-2.0); EOSINOPHILS # (AUTO) 0.1 K/uL (0-0.4); EOSINOPHILS % (AUTO) 0.9 % (0.0-4.0); LYMPHOCYTES # (AUTO) 2.7 K/uL (2.0-11.5); LYMPHOCYTES % (AUTO) 18.8 % (20.5-51.1); MEAN CORPUSCULAR HEMOGLOBIN 30 pg (27-31); MEAN CORPUSCULAR HGB CONC 33 g/dL (33-37); MEAN CORPUSCULAR VOLUME 90.4 fL (80-94); MONOCYTES # (AUTO) 0.6 K/uL (0.8-1.0); MONOCYTES % (AUTO) 4.5 % (1.7-9.3); NEUTROPHILS # (AUTO) 10.8 K/uL (1.8-7.7); NEUTROPHILS % (AUTO) 75.1 % (42.2-75.2); PLATELET COUNT (AUTO) 522 K/uL (140-450); RED BLOOD CELL COUNT(AUTO) 4.43 MIL/uL (4.20-6.10); WHITE BLOOD COUNT (AUTO) 14.4 K/uL (4.8-10.8)
[2019-05-11 15:11] LABS: ACETONE, SERUM NEGATIVE (NEGATIVE)
[2019-05-11 15:14] LABS: CARBON DIOXIDE 24.4 mmol/L (21-32); CREATININE 2.1 mg/dL (0.7-1.3); POTASSIUM 5.4 mmol/L (3.5-5.1)
[2019-05-11 15:15] LABS: PROTHROMBIN TIME 10.4 secs (10.8-13.4)
--- NOTE | 2019-05-11 15:21 | NUR ---
PT IS VOMITING. DR. CARDENAS NOTIFIED. PER DR. CARDENAS HOLD INSULIN R.
[2019-05-11] MEDS ORDERED: METOCLOPRAMIDE 10 MG/2 ML INJ VIAL IVP ONE (15:25)
[2019-05-11] MEDS ORDERED: ONDANSETRON 4 MG/2 ML VIAL IVP ONE (15:25)
[2019-05-11 15:27] LABS: ALBUMIN 3.3 g/dL (3.4-5.0); TOTAL BILIRUBIN 0.9 mg/dL (0.0-1.0)
[2019-05-11 15:28] LABS: MAGNESIUM 1.8 mg/dL (1.8-2.4)
[2019-05-11] MEDS ORDERED: SODIUM POLYSTYRENE 15 GM/60 ML UDBTL PO ONE (15:35)
[2019-05-11 15:57] LABS: APPEARANCE,URINE HAZY (CLEAR); BILIRUBIN,URINE NEGATIVE (NEGATIVE); BLOOD, URINE TRACE-L (NEGATIVE); COLOR,URINE YELLOW (YELLOW); LEUKOCYTE ESTERASE ,URINE NEGATIVE (NEGATIVE); NITRITE, URINE NEGATIVE (NEGATIVE); PH,URINE 5.5 (5.0-9.0); UGLUCOSE 2+ (NEGATIVE)
[2019-05-11 16:05] LABS: RBC,URINE 0-5 /HPF (0-5); WBC,URINE 0-5 /HPF (0-5)
[2019-05-11] MEDS ORDERED: hydrOXYzine HCL 25 MG TAB PO ONE (16:05)
[2019-05-11] MEDS ORDERED: FLUCONAZOLE 100 MG TAB PO ONE (16:05)
[2019-05-11 16:06] LABS: URINE AMORPHOUS URATE 1+ /HPF (None Seen)
--- NOTE | 2019-05-11 16:16 | NUR ---
PT BLOOD GLUCOSE 403. MADE AWARE. INSULIN R 8 UNITS GIVEN TO PT.
--- NOTE | 2019-05-11 17:21 | NUR ---
Dr. José re-evaluating patient at bedside.
--- NOTE | 2019-05-11 18:30 | NUR ---
Pt is eating at bedside. vss.
--- NOTE | 2019-05-11 20:51 | NUR ---
[facility] ARRIVED FOR TX OF PT
--- NOTE | 2019-05-11 21:15 | NUR ---
Patient to be transferred to [facility]. Is being transferred due to SOB, Dyspnea, CHF. Receiving facility has accepting physician and available space. ER physician has signed transfer form. Patient or responsible republican has agreed to transfer and signed form. Patient belongings inventoried and will be sent with patient. Copy of nursing notes, lab reports, EKG, Physicians Orders and X-rays to be sent with patient. Report called to Telma Blair at receiving facility. [facility] ambulance service has been called for transfer. ETA is 0930PM.
[2019-05-11 21:25] VITALS: BP 114/64
== END 2019-05-11 21:15 | disposition short-term general hospital (02) ==
LOC: MED 13:56
DX: E11.22 Type 2 diabetes mellitus with diabetic chronic kidney disease (principal); E11.65 Type 2 diabetes mellitus with hyperglycemia; I13.0 Hypertensive heart and chronic kidney disease with heart failure and stage 1 through stage 4 chronic kidney disease, or unspecified chronic kidney disease; N18.4 Chronic kidney disease, stage 4 (severe); I50.9 Heart failure, unspecified; E11.43 Type 2 diabetes mellitus with diabetic autonomic (poly)neuropathy; K31.84 Gastroparesis; E11.39 Type 2 diabetes mellitus with other diabetic ophthalmic complication; E11.36 Type 2 diabetes mellitus with diabetic cataract; E87.5 Hyperkalemia; I89.0 Lymphedema, not elsewhere classified; B35.9 Dermatophytosis, unspecified; E78.5 Hyperlipidemia, unspecified; K21.9 Gastro-esophageal reflux disease without esophagitis; E66.9 Obesity, unspecified; Z68.41 Body mass index [BMI] 40.0-44.9, adult; Z79.4 Long term (current) use of insulin; Z79.82 Long term (current) use of aspirin; Z79.899 Other long term (current) drug therapy
CPT/HCPCS: 36415; 71045; 80053; 81001; 82009; 82948; 83036; 83735; 83880; 84484; 84550; 85025; 85379; 85610; 85730; 93005; 93971; 96372; 96374; 96375; 99291; C1758; J1815; J1940; J2405; J2765; Q0092; 81002; 99285

== ENCOUNTER 2019-06-27 03:15 | Emergency (ER) | payer BC ==
[~2019-06-27] VITALS: Ht 198.1 cm; Wt 148.3 kg
[~2019-06-27 03:15] MED LIST changes: +ASPI-1718 PO; +AZIT250T3 PO; -GABA-638 PO; +GABA300C PO
[2019-06-27 03:24] VITALS: BP 133/79
--- NOTE | 2019-06-27 03:25 | NUR ---
64/M BIBA FROM [facility] APT C/O FALL FROM HIS BED. STATES HE LANDED ON HIS KNEES. DENIES HEAD TRAUMA, LOC. C/O GENERALIZED WEAKNESS X1WK. AWAKE AND ALERT X4. PERSON PLACE TIME AND EVENT. EVEN UNLABORED BREATHING. BILATERAL CLEAR BREATH SOUNDS. ABD LARGE, SOFT, NONTENDER, DISTENDED. SKIN DRY, WARM, SCALY. YELLOW TINGE TO SKIN. SKIN NON INTACT. LEFT PINKY TOE AMPUTATION 2018. SCABS AND REDNESS TO TOES. SWELLING TO LOWER EXTREMITIES. VITALS NOTED. HR 122. HX HTN, DM, A FIB, CHF. STATES NKA. PT SAYS HE TOOK GABAPENTIN FOR PAIN. RX LASIX, BABY ASPIRIN. NON COMPLIANT WITH MEDICATIONS.
--- NOTE | 2019-06-27 03:35 | NUR ---
LAB AT BEDSIDE
--- NOTE | 2019-06-27 03:49 | NUR ---
EKG BEING PERFORMED BY SELINA
--- NOTE | 2019-06-27 03:49 | NUR ---
EKG PERFORMED AT BEDSIDE
[2019-06-27 03:50] LABS: HEMOGLOBIN 12.8 g/dL (12.0-18.0); MONOCYTES # (AUTO) 0.5 K/uL (0.8-1.0)
[2019-06-27 03:54] LABS: BASOPHILS # (AUTO) 0.1 K/uL (0.00-0.22); EOSINOPHILS # (AUTO) 0.1 K/uL (0-0.4); EOSINOPHILS % (AUTO) 1.6 % (0.0-4.0); HEMATOCRIT 40.3 % (36-52); LYMPHOCYTES # (AUTO) 2.5 K/uL (2.0-11.5); LYMPHOCYTES % (AUTO) 30.6 % (20.5-51.1); MEAN CORPUSCULAR HEMOGLOBIN 28 pg (27-31); MEAN CORPUSCULAR HGB CONC 32 g/dL (33-37); MEAN CORPUSCULAR VOLUME 86.5 fL (80-94); MONOCYTES % (AUTO) 6.2 % (1.7-9.3); NEUTROPHILS % (AUTO) 60.6 % (42.2-75.2); PLATELET COUNT (AUTO) 382 K/uL (140-450); RED BLOOD CELL COUNT(AUTO) 4.66 MIL/uL (4.20-6.10); WHITE BLOOD COUNT (AUTO) 8.3 K/uL (4.8-10.8)
[2019-06-27 04:07] LABS: ANION GAP 11.5 (8-16); CARBON DIOXIDE 26.2 mmol/L (21-32); CREATININE 1.7 mg/dL (0.7-1.3); POTASSIUM 4.7 mmol/L (3.5-5.1)
[2019-06-27 04:09] LABS: PROTHROMBIN TIME 10.9 secs (10.8-13.4)
[2019-06-27 04:12] LABS: ALBUMIN 2.8 g/dL (3.4-5.0); TOTAL BILIRUBIN 0.9 mg/dL (0.0-1.0)
--- NOTE | 2019-06-27 04:28 | NUR ---
PT TAKEN TO XRAY
--- NOTE | 2019-06-27 05:52 | NUR ---
PT LAYING IN BED SEMIFOWLER, RR EVEN AND UNLABORED. VS NOTED. PT DENIES ANY PAIN OR SOB. ALL NEEDS MET AT THIS TIME.
[2019-06-27] MEDS ORDERED: FUROSEMIDE 40 MG/4 ML VIAL IVP ONE (06:25)
--- NOTE | 2019-06-27 07:15 | NUR ---
RECEIVED REPORT FROM URSZULA FOR CONTINUATION OF CARE.
--- NOTE | 2019-06-27 07:30 | NUR ---
PT AWAKE AND RESTING IN BED AT THIS TIME. DENIES SOB.
--- NOTE | 2019-06-27 08:05 | NUR ---
SPOKE WITH ANDRÉS ANN AT [facility] TO GIVE REPORT. ADVISED HER PT WILL BE ADMITTED TO ROOM 2148 UNDER THE CARE OF DR. CARTER. MATT ETA 45 MIN.
[2019-06-27 08:32] VITALS: BP 108/75
--- NOTE | 2019-06-27 08:32 | NUR ---
Patient to be transferred to [facility]. Receiving facility has accepting physician and available space. ER physician has signed transfer form. Patient or responsible green party has agreed to transfer and signed form. Patient belongings inventoried and will be sent with patient. Copy of nursing notes, lab reports, EKG, Physicians Orders and X-rays to be sent with patient. Report called to ANDRÉS ANN at receiving facility. [facility] ambulance service transferING PT AT THIS TIME.
--- NOTE | 2019-06-27 08:35 | NUR ---
[facility] at bedside for transport.
== END 2019-06-27 08:32 | disposition short-term general hospital (02) ==
LOC: MED 03:15
DX: I50.9 Heart failure, unspecified (principal); E11.9 Type 2 diabetes mellitus without complications; I10 Essential (primary) hypertension; Z79.82 Long term (current) use of aspirin; Z79.4 Long term (current) use of insulin; Z79.899 Other long term (current) drug therapy
CPT/HCPCS: 36415; 71046; 80053; 83880; 84484; 85025; 85610; 85730; 93005; 96374; 99285; J1940

== ENCOUNTER 2020-09-15 14:41 | Emergency (ER) | payer OTHER, MEDICAID ==
[~2020-09-15] VITALS: Ht 200.7 cm; Wt 136.1 kg
[~2020-09-15 14:41] MED LIST changes: -ASPI-1718 PO; +ASPI-1822 PO
[2020-09-15 14:53] VITALS: BP 150/69
--- NOTE | 2020-09-15 14:55 | NUR ---
PT BIBA C/O GENERALIZED WEAKNESS. PT WAS PICKED UP ON THE STREET BY EMS. PT STATES HE DOES FEEL WELL AND WANTED TO SEEK MEDICAL SERVICE, BUT HIS POWER WHEELCHAIR WAS RUN OUT OF BATTERY. PT REPORTS HE FELL WHILE GETTING UP FROM THE TOILET ONE WEEK AGO. HE WAS SEEN IN [facility] 3 DAYS AGO FOR STEFFANIE FEET PAIN. MULTIPLE SMALL LESIONS NOTICED ON THE RT FOOT, AND ONE 1X1 CM LESION NOTICED ON HIS LEFT FLANTAR AREA. DENIES N/V/D; AAOX4; PATIENT STATES PAIN OF 4/10 AT THIS TIME; VSS; PATIENT POSITIONED FOR COMFORT; HOB ELEVATED; BEDRAILS UP X2; BED DOWN. ER MD MADE AWARE OF PT STATUS.
[2020-09-15] MEDS ORDERED: NACL 0.9% 1,000 ML IV ONE (15:15)
--- NOTE | 2020-09-15 15:42 | NUR ---
EDUARDO AND FLU SWABS OBTAINED AND SENT TO THE LAB.
[2020-09-15 15:51] LABS: BASOPHILS # (AUTO) 0.1 K/uL (0.00-0.22); BASOPHILS % (AUTO) 0.9 % (0.0-2.0); EOSINOPHILS % (AUTO) 0.4 % (0.0-4.0); HEMATOCRIT 38.5 % (36-52); HEMOGLOBIN 13.1 g/dL (12.0-18.0); MEAN CORPUSCULAR HEMOGLOBIN 30 pg (27-31); MEAN CORPUSCULAR HGB CONC 34 g/dL (33-37); MEAN CORPUSCULAR VOLUME 88.2 fL (80-94); MONOCYTES # (AUTO) 0.3 K/uL (0.8-1.0); MONOCYTES % (AUTO) 3.7 % (1.7-9.3); NEUTROPHILS # (AUTO) 7.2 K/uL (1.8-7.7); PLATELET COUNT (AUTO) 314 K/uL (140-450); RED BLOOD CELL COUNT(AUTO) 4.37 MIL/uL (4.20-6.10); WHITE BLOOD COUNT (AUTO) 8.6 K/uL (4.8-10.8)
--- NOTE | 2020-09-15 15:53 | NUR ---
XRAY IS AT [facility].
[2020-09-15 16:08] LABS: ALBUMIN 2.9 g/dL (3.4-5.0); ANION GAP 16.5 (8-16); CARBON DIOXIDE 22.3 mmol/L (21-32); CREATININE 1.9 mg/dL (0.6-1.3); POTASSIUM 4.8 mmol/L (3.5-5.1); TOTAL BILIRUBIN 0.4 mg/dL (0.0-1.0)
--- NOTE | 2020-09-15 16:22 | NUR ---
PT HAS FEVER 103.[address] READ MADE AWARE.
[2020-09-15 16:30] LABS: PROTHROMBIN TIME 9.9 secs (10.8-13.4)
[2020-09-15] MEDS ORDERED: ACETAMINOPHEN EXTRA STRENGTH 500 MG TAB PO ONE (16:40)
[2020-09-15 18:32] LABS: APPEARANCE,URINE CLEAR (CLEAR); BILIRUBIN,URINE NEGATIVE (NEGATIVE); BLOOD, URINE TRACE-I (NEGATIVE); COLOR,URINE YELLOW (YELLOW); LEUKOCYTE ESTERASE ,URINE NEGATIVE (NEGATIVE); NITRITE, URINE NEGATIVE (NEGATIVE); UGLUCOSE 3+ (NEGATIVE)
[2020-09-15 18:35] LABS: HYALINE CASTS, URINE 0-10 /LPF (None Seen); RBC,URINE 0-5 /HPF (0-5); WBC,URINE NONE SEEN /HPF (0-5)
[2020-09-15] MEDS ORDERED: cephALEXin 500 MG CAP PO ONE (19:20)
--- NOTE | 2020-09-15 19:31 | NUR ---
Pt report given to ANDRÉS Cooper. Transfer of care at this time.
[2020-09-15 20:00] VITALS: BP 129/60
--- NOTE | 2020-09-15 20:00 | NUR ---
RECEIVED REPORT FROM FELIPE BOWEN [facility] NURSE AT BEDSIDE FOR CONTINUITY OF CARE, PT AOX4 SITTING UP IN [facility]. V/S FOLLOWS: T 98.4 P 90 R 13 B/P 129/60 02 97% ON ROOM AIR. PT GIVEN ORDERED DINNER A BEDISDE.
--- NOTE | 2020-09-15 20:30 | NUR ---
Patient discharged with v/s stable. Written and verbal after care instructions given and explained. Patient alert, oriented and verbalized understanding of instructions. wheelchair assist. All questions addressed prior to discharge. ID band removed. Patient advised to follow up with PMD. Rx of KEFLEX given. Patient educated on indication of medication including possible reaction and side effects. Opportunity to ask questions provided and answered.
== END 2020-09-15 20:30 | disposition home or self-care (01) ==
LOC: MED 14:41
DX: E11.621 Type 2 diabetes mellitus with foot ulcer (principal); E11.65 Type 2 diabetes mellitus with hyperglycemia; I11.0 Hypertensive heart disease with heart failure; I50.9 Heart failure, unspecified; E78.5 Hyperlipidemia, unspecified; Z79.4 Long term (current) use of insulin; Z79.899 Other long term (current) drug therapy; Z79.82 Long term (current) use of aspirin
CPT/HCPCS: 36415; 36600; 71045; 73630; 80053; 81001; 82550; 82553; 82803; 83605; 83874; 83880; 84484; 85025; 85610; 85651; 85730; 86140; 87040; 87086; 87426; 87804; 96360; 99285; J7030; Q0092; 93005